=== PATIENT | male | born 1995 | race African-American/Black ===

== ENCOUNTER 2016-12-20 10:29 | Emergency (ER) | payer SELFPAY | END 2016-12-20 12:14 | disposition home or self-care (01) | LOC: D.ER 10:29 | DX: S62.101A Fracture of unspecified carpal bone, right wrist, initial encounter for closed fracture (principal); W22.01XA Walked into wall, initial encounter; Y93.89 Activity, other specified; Y92.019 Unspecified place in single-family (private) house as the place of occurrence of the external cause ==